=== PATIENT | male | born 1965 | race African-American/Black ===

== ENCOUNTER 2021-07-04 07:25 | Inpatient (IN) | payer OTHER ==
[~2021-07-04] VITALS: Ht 177.8 cm; Wt 86.2 kg
[2021-07-04 07:27] VITALS: BP 206/103
[2021-07-04 07:44] LABS: ABSOLUTE NEUTROPHILS 9.5 thou/uL (1.4-8.2); BASOPHILS 0.6 % (0.0-2.0); EOSINOPHILS 0.2 % (0.0-3.0); HEMATOCRIT 41.1 % (42.0-52.0); LYMPHOCYTES 14.1 % (24.0-44.0); MCH 30.8 pg (26.0-34.0); MCHC 34.1 g/dL (28.0-37.0); MCV 90.2 fL (80.0-100.0); MONOCYTES 5.1 % (1.0-8.0); PLATELET COUNT 213 thou/uL (150-400); RBC 4.55 mil/uL (4.50-6.00); RDW 14.3 % (10.5-14.5); WBC 11.8 thou/uL (4.0-11.0)
[2021-07-04 07:59] LABS: CALCIUM 9.3 mg/dL (8.5-10.1); CREATININE 1.2 mg/dL (0.7-1.3)
[2021-07-04 08:09] LABS: ALBUMIN 3.9 g/dL (3.4-5.0); TOTAL BILIRUBIN 0.3 mg/dL (0.2-1.0); TOTAL PROTEIN 8.1 g/dL (6.4-8.2)
--- NOTE | 2021-07-04 08:37 | NUR ---
PT STATES HE HAS HTN AND HAS NOT TAKEN HIS BLOOD PRESSURE MEDICATION TODAY. GAVE URINAL TO PT. PT CALL LIGHT WITHIN REACH.
[2021-07-04 08:52] LABS: URINE BILIRUBIN NEGATIVE (Negative); URINE BLOOD NEGATIVE (Negative); URINE CLARITY CLEAR; URINE COLOR YELLOW; URINE GLUCOSE-RANDOM* 2+ (Negative); URINE KETONES NEGATIVE (Negative); URINE LEUKOCYTES-REFLEX NEGATIVE (Negative); URINE NITRITE-REFLEX NEGATIVE (Negative); URINE PROTEIN (DIPSTICK) NEGATIVE (Negative); URINE UROBILINOGEN 0.2 E.U./dl (0.2-1.0)
--- NOTE | 2021-07-04 11:34 | EKG ---
[place] [address] [facility] [place] [address] ELECTROCARDIOGRAM REPORT Name: MARITA UREÑA [facility] #: [id number] Admission: 07/04/21 Attend Phys: Discharge: Date of : 67 Report #: [id number] ED Test Date: 2021-07-04 Test Time: 07:31:43 Pat Name: MARITA UREÑA Department: Room: Gender: M [place]: : 1965 Requested By: Drake Lopez Order Number: [id number] MD: Abhijit Mcintyre Measurements Intervals [place] Rate: 69 P: 36 AK: 146 QRS: 46 QRSD: 126 T: 8 QT: 394 QTc: 422 Interpretive Statements Sinus rhythm Nonspecific intraventricular conduction delay Probable anteroseptal infarct, old Minimal ST depression, inferior leads No previous ECG available for comparison Electronically Signed On 07-04-2021 11:34:18 SERVICENOW ADMINISTRATOR by Abhijit Mcintyre [email or web address] <ELECTRONICALLY SIGNED> By: Abhijit Mcintyre MD 07/04/21 1134 0731 0 MD ERICA Sanderson
[2021-07-04 12:50] VITALS: BP 182/76
[2021-07-04] MEDS ORDERED: BASAGLAR K100 UNIT/1 SUBQ (12:54)
[2021-07-04] MEDS ORDERED: PROTONIX40 M2 PO (12:54)
[2021-07-04] MEDS ORDERED: METOCLOPRAMIDE10 MG PO (12:55)
[2021-07-04] MEDS ORDERED: AMLODIPINE BESY10 MG PO (12:55)
[2021-07-04] MEDS ORDERED: ONDANSETRON HCL4 M3 PO (12:55)
[2021-07-04] MEDS ORDERED: LIPITOR 40 MG T40 M1 PO (12:56)
[2021-07-04 13:27] VITALS: BP 212/99
--- NOTE | 2021-07-04 13:28 | NUR ---
PER , HE WOULD LIKE STAFF TO CALL HIM IN APPROX. AN HOUR OR TWO AFTER HYDRALAZINE PO IS GIVEN TO UPDATE HIM ON PATIENT BLOOD PRESSURE STATUS. INPATIENT NURSE WAS INFORMED OF THIS DURING REPORT AND TOLD TO PAGE DR. SCHMITZ
[2021-07-04 14:00] VITALS: BP 217/98
[2021-07-04 20:00] VITALS: BP 105/51
--- NOTE | 2021-07-05 01:08 | NUR ---
ASSUMED PT CARE AT 1900.PT C/O EPIGASTRIC PAIN,MANAGED WITH MED.PT HAD AN EPISODE OF NAUSEA WITH VOMITING,PRN ZOFRAN GIVEN WITH RELIEF.PT'S ROLY HYDRALAZINE HELD AT HS DUE TO LOW BP.PT ON TELE SR.PT ABLE TO MAKE HIS NEEDS KNOWN.PT RESTING QUIETLY ON HIS BED BREATHING NORMAL AND UNLABORED. REPORT GIVEN TO ANOTHER RN THAT TOOK OVER PT'S CARE AT 0045.
[2021-07-05 05:48] LABS: ABSOLUTE NEUTROPHILS 11.5 thou/uL (1.4-8.2); BASOPHILS 0.2 % (0.0-2.0); LYMPHOCYTES 10.1 % (24.0-44.0); MCH 31.1 pg (26.0-34.0); MCHC 34.1 g/dL (28.0-37.0); MCV 91.3 fL (80.0-100.0); MONOCYTES 5.8 % (1.0-8.0); PLATELET COUNT 219 thou/uL (150-400); POLYS 83.9 % (36.0-66.0); RBC 4.81 mil/uL (4.50-6.00); RDW 14.1 % (10.5-14.5); WBC 13.7 thou/uL (4.0-11.0)
[2021-07-05 05:49] LABS: CALCIUM 9.4 mg/dL (8.5-10.1); CREATININE 1.2 mg/dL (0.7-1.3); POTASSIUM 3.2 mmol/L (3.5-5.1)
--- NOTE | 2021-07-05 06:58 | NUR ---
RECEIVED CARE OF THIS PATIENT AT 0030. PATIENT ALERT AND ORIENTED X4. UP AD ISAIAS. C/O PAIN. MED GIVEN. SLEPT OFF AND ON DURING NIGHT.
[2021-07-05 07:57] VITALS: BP 154/87
[2021-07-05] MEDS ORDERED: PROTONIX40 M2 PO (11:40)
[2021-07-05] MEDS ORDERED: HUMALOG100 UNIT/1 SUBQ (11:40)
[2021-07-05] MEDS ORDERED: HYDRALAZINE 5050 MG PO (11:40)
[2021-07-05] MEDS ORDERED: ACCUPRIL40 MG PO (11:40)
[2021-07-05] MEDS ORDERED: METOCLOPRAMIDE10 MG PO (11:40)
[2021-07-05] MEDS ORDERED: AMLODIPINE BESY10 MG PO (11:40)
[2021-07-05] MEDS ORDERED: LIPITOR 40 MG T40 M1 PO (11:40)
[2021-07-05] MEDS ORDERED: ACETAMINOPHEN325 M1 PO (11:40)
[2021-07-05] MEDS ORDERED: LANTUS SUBQ (11:40)
[2021-07-05 13:51] VITALS: BP 152/87
--- NOTE | 2021-07-05 14:17 | NUR ---
Patient was medically stable to discharge this day. Patient was given prescriptions and education on HTN management as well as diabetes management. Patient verified understanding. No issues this shift
== END 2021-07-05 15:31 | disposition home or self-care (01) | DRG 74 ==
LOC: ER 07:25 → EROBS 12:55 → 4S 13:48
PROVIDERS: Emergency Medicine; Nurse Practitioner; ADMIT Internal Medicine; ATTEND Internal Medicine
DX: E11.43 Type 2 diabetes mellitus with diabetic autonomic (poly)neuropathy (principal); I16.0 Hypertensive urgency; K31.84 Gastroparesis; Z79.4 Long term (current) use of insulin; E78.5 Hyperlipidemia, unspecified; Z88.0 Allergy status to penicillin; Z20.822 Contact with and (suspected) exposure to COVID-19; E11.65 Type 2 diabetes mellitus with hyperglycemia
CPT/HCPCS: 10100